=== PATIENT | female | born 1975 | race African-American/Black ===

== ENCOUNTER 2024-07-27 18:33 | Emergency (ER) | payer SELFPAY ==
[~2024-07-27] VITALS: Ht 175.3 cm; Wt 106.0 kg
[2024-07-27 18:58] VITALS: TEMP 36.9; O2SAT 99
[2024-07-27 20:20] LABS: BASOPHILS % 0.8 % (0.0-2.0); EOSINOPHILS % 3.6 % (0.0-5.0); HEMATOCRIT. 36.2 % (36.0-48.0); HEMOGLOBIN. 11.9 g/dL (12.0-16.0); MEAN CORPUSCULAR HEMOGLOBIN 29.9 pg (28.0-32.0); MEAN CORPUSCULAR HGB CONC 32.9 g/dL (31.0-37.0); MEAN PLATELET VOLUME 9.1 fl (7.4-10.4); MONOCYTES % 8.8 % (2.0-8.0); NEUTROPHILS % 57.8 % (40.0-76.0); PLATELET 316 x1000/uL (130-400); RED BLOOD CELL COUNT 3.98 mill/uL (4.2-5.4); RED CELL DISTRIBUTION WIDTH 16.9 % (11.6-14.6); WHITE BLOOD COUNT 6.1 x1000/uL (4.5-11.0)
[2024-07-27 20:27] LABS: CHLORIDE 106 mEq/L (98-107); POTASSIUM 3.9 mEq/L (3.5-5.1); SODIUM 141 mEq/L (136-145)
[2024-07-27 20:28] LABS: CALCIUM 9.3 mg/dL (8.7-10.4); CARBON DIOXIDE 27 mEq/L (21-32)
[2024-07-27 20:33] LABS: CREATININE 0.9 mg/dL (0.6-1.0); GLUCOSE 105 mg/dL (70-105); TROPONIN I HIGH SENSITIVITY 11 ng/L (3.0-34); UREA NITROGEN BLOOD 12 mg/dL (9-23)
[2024-07-27 20:35] LABS: ALANINE AMINOTRANSFERASE 18 IU/L (10-49); ASPARTATE AMINOTRANSFERASE 26 IU/L (<34); BILIRUBIN DIRECT 0.1 mg/dL (<=3.0); BILIRUBIN TOTAL 0.3 mg/dL (0.1-1.0); PROTEIN TOTAL 7.7 g/dL (6.0-8.3)
[2024-07-27 20:37] LABS: PROTHROMBIN TIME 10.8 sec (9.6-11.0)
[2024-07-27 20:47] LABS: HCG SCREEN NEGATIVE
[2024-07-27] MEDS: METOCLOPRAMIDE HCL 10MG/2ML VIAL IV ONE (22:02)
[2024-07-27] MEDS: SODIUM CHLORIDE 0.9% 1,000 ML IV ONE (22:03)
[2024-07-27] MEDS: KETOROLAC 15MG/ML VIAL IV ONE (22:03)
[2024-07-27] MEDS: DIPHENHYDRAMINE 50MG/ML VIAL IV ONE (22:04)
[2024-07-27] MEDS: ACETAMINOPHEN 325MG TABLET PO ONE (22:05)
[2024-07-27] MEDS: MAGNESIUM/ALUMINUM HYDROXIDE/SIMETHICONE 30ML UDC PO ONE (22:35)
[2024-07-27] MEDS: MORPHINE SULFATE 4 MG/ML INJ (FOR IV/IM USE) IV ONE (22:36)
[2024-07-27] MEDS ORDERED: ONDA-239 PO (22:54)
[2024-07-28 00:03] VITALS: BP 120/51; PULSE 52; RESP 14; O2SAT 98
== END 2024-07-28 | disposition home or self-care (01) ==
LOC: ER 18:33
DX: K29.70 Gastritis, unspecified, without bleeding (principal); G43.909 Migraine, unspecified, not intractable, without status migrainosus; Z79.899 Other long term (current) drug therapy; Z98.890 Other specified postprocedural states; Z88.1 Allergy status to other antibiotic agents; Z98.84 Bariatric surgery status
CPT/HCPCS: 80076; 80048; 84703; 83690; 85025; 85610; 84484; 36415; 74176; 96361; 96374; 96375; 99285; J1200; J1885; J2765; J2270; J7030; Z7610 ×2